=== PATIENT | male | born 1980 | race African-American/Black ===

== ENCOUNTER 2017-08-07 19:02 | Emergency (ER) | payer MEDICAID ==
[~2017-08-07] VITALS: Ht 188 cm; Wt 150.0 kg
[2017-08-07 19:03] VITALS: BP 159/75
== END 2017-08-07 21:00 | disposition home or self-care (01) ==
LOC: ER 20:44
DX: R45.1 Restlessness and agitation (principal); F32.9 Major depressive disorder, single episode, unspecified; F31.9 Bipolar disorder, unspecified
CPT/HCPCS: 99283